=== PATIENT | female | born 1950 | race Caucasian/White ===

== ENCOUNTER 2017-04-14 18:06 | Day surgery (SDC) | payer MEDICARE ==
[~2017-04-14] VITALS: Ht 160 cm; Wt 82.9 kg
[2017-04-14] MEDS ORDERED: BAYER CHEWABLE81 MG PO (19:07)
[2017-04-14] MEDS ORDERED: ACETAMINOPHEN325 MG PO (19:13)
[2017-04-14] MEDS ORDERED: ZOFRAN4 MG PO (19:14)
[2017-04-14] MEDS ORDERED: FOLIC ACID1 MG PO (19:16)
[2017-04-14] MEDS ORDERED: LEVO-T25 MCG PO (19:19)
[2017-04-14] MEDS ORDERED: COLACE100 MG PO (19:20)
[2017-04-14] MEDS ORDERED: MIRALAX17 GM PO (19:26)
[2017-04-14] MEDS ORDERED: LIPITOR20 MG PO (19:28)
[2017-04-14] MEDS ORDERED: SYNTHROID175 MCG PO (19:37)
[2017-04-14] MEDS ORDERED: NOVOLIN N100 U/ML SQ ×2 (19:39→19:40)
[2017-04-14 19:43] VITALS: BP 132/72; BMI 32.1
[2017-04-14 20:00] VITALS: BP 132/62
--- NOTE | 2017-04-14 23:44 | NUR ---
INITIAL ROUNDS COMPLETED AT 1910 HRS. NO DISTRESS NOTED. FAMILY AT BEDSIDE. ADMISSIN ASSESSMENTCOMPLETED BY 2000 HRS. VSS. IV TO LFA SL. PT DEAF L EAR. R NECK TRIALYSIS NOTED. O2 2LNC. ASSISTED PT TO BR AT 2130 HRS. PT VOIDED 400CC OF URINE. ASSITED BACK TO BED. GAIT UNSTEADY. PM MMEDS GIVEN. PM SNACK SERVED AT 2035 HRS. FSBS AT 2320 HRS 546 AND 586. LAB CALLED FOR STAT GLUCOSE. AWAITNG RESULTS. CHRIS CONTINUE TO MONITOR. SR UP X2, CALL LIGHT WITHIN REACH.
[2017-04-15] VITALS: BP 135/60
--- NOTE | 2017-04-15 00:18 | NUR ---
ON HOLD WITH NEPHROLOGY PIPPA ANSWERING SERVICE X 20 MNUTES. 12 UNITS HUMALOG GIVEN SUB-Q TO L ABD PER S/S. LAB RESULTS 591. WILL RECHECK IN 45 MINUTES. WILL CONTINUE TO MONITOR.
--- NOTE | 2017-04-15 00:39 | NUR ---
RENAL ANSWERING SERVICES NOT ON HOLD. INFORMED NEEDED TO SPEAK TO Perri LANG BUSINESS APPLICATIONS ANALYST RETURNS CALLL AT 0040 HRS INFORMED OF CURRENT BS, AMOUNT OF HUMALOG GIVEN,AND NPO FOR AM SERVICES. INFORMED TO RECHECK IN 30 MINUTES AND IF BS IS GOING DOWN NO ADDITINAL TX.
--- NOTE | 2017-04-15 01:25 | NUR ---
FSBS 570. BLOOD SUGAR TRENDING DOWNWARDS. NPO FOR AM SURGERY. WILL RECHECK WITH AM LABS. WILL CONTINUE TO MONTIOR.
[2017-04-15 04:00] VITALS: BP 131/68
--- NOTE | 2017-04-15 04:47 | NUR ---
PT RESTING WITH EYES CLOSED. RESP EVEN AND REGULAR. SR UP X2, CALL LIGHT WITHIN REACH.
[2017-04-15 06:21] LABS: INR 1.06 (0.85-1.17); PROTIME 13.4 SECONDS (11.6-15.0)
[2017-04-15 06:34] LABS: ANION GAP 12.5 mmol/L (8-16); CALCIUM 8.1 mg/dL (8.5-10.1); CARBON DIOXIDE 28.4 mmol/L (21.0-32.0); CREATININE - SERUM 2.7 mg/dL (0.6-1.3); POTASSIUM - SERUM 3.9 mmol/L (3.5-5.1)
--- NOTE | 2017-04-15 06:36 | NUR ---
VSS THROUGHOTU NIGHT. AM FSBS 464. AWAITING LAB RESLTS. NPO FOR AM HEMOSPLIT PLACEMENT. NEEDS MET; WILL CONTINUE TO MONITOR.
--- NOTE | 2017-04-15 06:52 | NUR ---
RENAL SERVICES PAGED REGARDING AM BLOD SUGAR.
--- NOTE | 2017-04-15 07:12 | NUR ---
Perri BRYANT APN RETURNS CALL FOR RENAL SERVICES. STATES TO GIVE THE 12 UNITS OF HUMALOG PER S/S. WILL CONTINUE TO MONITOR.
[2017-04-15 07:54] VITALS: BP 125/64
--- NOTE | 2017-04-15 09:02 | NUR ---
RECEIVED CALL FROM SALVADOR IN SURGERY AND PATIENT WILL BE LEAVING UNIT SOON.
--- NOTE | 2017-04-15 09:10 | NUR ---
PATIENT LEFT UNIT VIA BED WITH SURGERY AT THIS TIME. NO DISTRESS UPON LEAVING UNIT.
--- NOTE | 2017-04-15 10:27 | NUR ---
RECEIVED PATIENT BACK FROM SURGERY. INFORMED PATIENT DID NOT GO TO RECOVERY. PATIENT O2 SAT 84% ON ROOM AIR. O2 VIA NASAL CANNULA APPLIED AT 2LITERS AND O2 SAT UP TO 94%. FAMILY AT BEDSIDE. HEMESPLIT DRESSING TO RIGHT CHEST CLEAN DRY AND INTACT. BIOPATCH IN TACT AND VISIBLE. NO BLEEDING FROM SITE. CALL LIGHT WITHIN REACH. NO DISTRESS.
[2017-04-15 11:18] VITALS: Ht 160 cm; Wt 82.9 kg
--- NOTE | 2017-04-15 11:43 | NUR ---
SPOKE TO BRO TO REPORT FSBS 438, HIGH BUT TRENDING DOWNWARD. RECIEVED NEW ORDERS TO COVER WITH 12 UNITS PER SLIDING SCALE AND RESTART NPH SHE WAS TAKING AT HOME AND TO GIVE THE AM DOSE OF 15UNITS NOW. EDUARDA INPUTTED ORDERED.
--- NOTE | 2017-04-15 11:59 | NUR ---
LEFT MESSAGE ON AMADA ORTEGA CONFIDENTIAL VOICE MAIL THAT WE ARE TRYING TO VERIFY CHAIR TIME ON A PATIENT AND WOULD APPRECIATE A CALL BACK IF POSSIBLE. PATIENT CANNOT BE DISCHARGED WITHOUT RECEIVING DILAYSIS TOMORROW UNLESS CHAIR TIME IS VERIFIED BY MONICA. AMADA ORTEGA [phone]
--- NOTE | 2017-04-15 12:19 | NUR ---
BP 132/52. PATIENT SITTING UP IN BED CONSUMING NOON MEAL. CALL LIGHT WITHIN REACH. NO DISTRESS.
--- NOTE | 2017-04-15 12:20 | NUR ---
SPOKE TO JERRI ZHU AND SHE STATES THAT IF PATIENT HAS NOT ACUTALLY HAD DIALYSIS IN THE OUTPATIENT CENTER THEN HER CHAIR IS NOT GAURENTED. PATIENT STATES SHE HAS ONLY RECIEVED DIALYSIS IN [facility]. AMADA STATED SHE WOULD TRY TO FIND PATIENT IN THE SYSTEM BUT IF [facility] DOES NOT HAVE CLINICS IN [place]. INFORMATION RELAYED TO PATIENT. PATIENT UPSET.
[2017-04-15 12:46] VITALS: BP 110/56
--- NOTE | 2017-04-15 13:24 | NUR ---
SPOKE TO MIKE, NURSE AT [facility] [phone] AND MIKE VERIFIED THAT PATIENT DOES HAVE CHAIR TIME GAURENTEED ON SUNDAY @ 1345. HAVE [facility] [employer] AND [employer]ORAGE CLERK TO NOTIFY OF THIS AND TO SEE IF NEPHROLOGY WILL DISCHARGE PATIENT TO HOME. AWAITING HEPATOLOGY PHYSICIAN BACK.
--- NOTE | 2017-04-15 17:07 | NUR ---
FSBS 233. 4 UNITS HUMALOG ADMINISTERED PER SLIDING SCALE. NO DISTRESS. EATING PM MEAL. 1.5 LITERS REMOVED DURING DIALYSIS.
--- NOTE | 2017-04-15 17:13 | NUR ---
18 GAUGE IV REMOVED FROM LEFT FOREARM. CATHETER TIP INTACT. NO BLEEDING FROM SITE. 2X2 GAUGE APPLIED AND SECURED WITH TAPE. TOLERATED IV REMOVAL WELL. PATIENT SITTING UP IN WC, NO DISTRESS.
--- NOTE | 2017-04-15 17:49 | NUR ---
DISCHARGE INSTRUCTIONS PROVIDED TO PATIENT AND FAMILY. PATIENT VERBALZIED UNDERSTANDING OF ALL INSTRUCTIONS PROVIDED. NO QUESTIONS FOR THIS PUBLIC WORKS COMMISSIONER.
--- NOTE | 2017-04-15 17:53 | NUR ---
PATIENT LEFT UNIT VIA WHEELCHAIR AT THIS TIME. PATIENT LEFT UNIT WITH ALL PERSONAL BELONGINGS. NO DISTRESS UPON LEAVING UNIT. PATIENT DISCHARGED TO HOME.
--- NOTE | 2017-04-15 19:57 | NUR ---
LATE ENTRY 1200 DR GARLAND SPOKE WITH PRIMARY NURSE AND SENIOR TECHNOLOGIST REGARDING VERIFICATION OF PATIENT'S HD STATUS AND CHAIR. NO DOCUMENTATION. PATIENT DID NOT KNOW. LOCATED AMADA ZHU'S PHONE NUMBER. SHE WAS NOT FAMILIAR WITH THIS PATIENT. HAD NO ADDITIONAL CONTACT PHONE NUMBERS. THE PATIENT CALLED THE LOCAL HOSPITAL AND SPOKE WITH THE HD NURSES. THEY VERFIED THE PATIENT'S CHAIR TIME AND DATE OF START. PATIENT WAS ABLE TO DISCHARGE TO HOME THIS PM W/ CONFIRMED DIALYSIS TIME AND DATES.
--- NOTE | 2017-04-15 20:16 | NUR ---
PATIENT TO BE AT [facility] AT 1345 ON Sunday04/17/17.
--- NOTE | 2017-04-19 13:27 | CN ---
PATIENT NAME:TRAVIS WHITAKER MEDICAL RECORD: [id number] : 54 [facility] ADMIT DATE: ACCOUNT: [id number] CONSULTING PHYSICIAN: MAN TRINIDAD MD REFERRING PHYSICIAN: NATACHA GARLAND MD DATE OF CONSULTATION: 04/14/2017 CHIEF COMPLAINT: No access. HISTORY OF PRESENT ILLNESS: The patient has no access for hemodialysis. The patient has end-stage renal disease. She is up from [place]. Reportedly, there are no surgeons in [place] at this time. Nothing aggravates. Nothing alleviates. She is asymptomatic. She has an indwelling right IJ Trialysis catheter. I have been asked to place a HemoSplit catheter. I have not been asked to place a peripheral access on this patient. She is left handed. For the typed portion of the consult note, please see the chart. This would include current medications, past medical and surgical history, allergies, family history, and social history. REVIEW OF SYSTEMS: No nausea, no vomiting, no fever, no chills, no chest pain, no shortness of breath. The review of systems is negative other than as is described above. PHYSICAL EXAMINATION: GENERAL: The patient does not appear acutely ill. She does appear chronically ill. VITAL SIGNS: Reviewed. EARS: External ears appear normal. EYES: Extraocular movements are intact. NECK: Trachea is midline. CHEST: No intercostal retractions. PULMONARY: Nonlabored, no stridor. ABDOMEN: No peritonitis with movement. EXTREMITIES: No peripheral cyanosis. INTEGUMENT: No rash. PSYCHIATRIC: Normal affect. NEUROLOGIC: Nonfocal. No lethargy. The patient answers questions appropriately. BACK: No thoracic kyphosis. LYMPHATICS: No lymphangitic streaking of the exposed extremities. IMPRESSION: End-stage renal disease without access for hemodialysis. PLAN: HemoSplit catheter placement in the OR on 04/15/2017. TRANSINT:[id number] Voice Confirmation ID: [id number] DOCUMENT ID: [id number] CONSULT REPORT [id number] TRAVIS WHITAKER ROBERT MD at 1327 CC: NATACHA GARLAND MD [id number] DICTATION DATE: 04/15/17 1023 EXCHANGE ENGINEER: 04/15/17 1324 [facility] 04/15/17 [facility] [address] [place] [address]
--- NOTE | 2017-04-19 13:27 | OP ---
PATIENT NAME: TRAVIS WHITAKER MEDICAL RECORD: [id number] :54 LOCATION:D[facility] ADMISSION DATE: SURGEON: SUMIT TRINIDAD MD DATE OF OPERATION: 04/15/2017 PREOPERATIVE DIAGNOSIS: End-stage renal disease without access for hemodialysis. POSTOPERATIVE DIAGNOSIS: End-stage renal disease without access for hemodialysis. PROCEDURES: 1. Placement of right 19-cm HemoSplit catheter (tunneled cuffed hemodialysis catheter under fluoroscopic guidance). 2. Immediate surgeon interpretation of the fluoroscopic images. SURGEON: Sumit Trinidad MD LICENSED REAL ESTATE BROKER: None. BLOOD LOSS: Minimal. ANESTHESIA: Local with IV sedation. COMPLICATIONS: None. The risks, possible complications, and alternatives to procedure were explained to the patient. She elects to proceed. OPERATIVE COURSE: The patient was conveyed to the operating room electively on 04/15/2017. No radiologist was present for this procedure. Static fluoroscopic images were obtained and are kept in the PACS system. The surgeon interpretation of the radiographic images is dictated within the body of this operative note. The patient was conveyed to the operating room electively on 04/15/2017. IV sedation was induced by anesthesia staff. The right neck and right chest were sterilely prepped and draped. A local anesthetic was used to infiltrate the skin and subcutaneous tissues in the right infraclavicular chest as well as at the base of the right neck. A skin incision was accomplished along the Trialysis catheter. A counterincision was accomplished in the right infraclavicular anterior chest. A J wire was placed down through the distal most port in the Trialysis catheter. I then dilated to a larger size. I tunneled a HemoSplit catheter from the chest incision to the neck incision. I then placed a dilator and sheath over the wire. This was visualized under fluoroscopy. The dilator and wire were removed. The tips of the HemoSplit catheter were advanced down through the sheath. The Peel-Away sheath was then removed. I then pulled back on the HemoSplit catheter to seat the cuff in the subcutaneous tissues. An image was obtained and this revealed no radiographic evidence of complication. There was no apparent kinking or twisting of the HemoSplit catheter. Both lumens flushed easily and aspirated dark, nonpulsatile blood. The neck incision was closed with a horizontal mattress 3-0 Vicryl suture. The flange of the HemoSplit catheter was sutured to the underlying skin with 2-0 OPERATIVE REPORT [id number] TRAVIS WHITAKER. Sterile dressings were applied. The patient was then conveyed back to her floor bed. I will see her on a p.r.n. basis. TRANSINT:[id number] Voice Confirmation ID: [id number] DOCUMENT ID: [id number] SUMIT TRINIDAD MD at 1327 CC: NATACHA GARLAND MD [id number] DICTATION DATE: 04/15/17 1028 SOLAR PHOTOVOLTAIC ELECTRICIAN: 04/15/17 1206 [facility] 04/15/17 [id number] [place] [address]
== END 2017-04-15 17:55 | disposition home or self-care (01) ==
LOC: OBSVTIME → D.OPS 18:06 → D.M2 18:06 → OBSVTIME 18:06 → D.M2 18:06 → D.OPS 04-15 17:55
PROVIDERS: Internal Medicine Nephrology
DX: E11.22 Type 2 diabetes mellitus with diabetic chronic kidney disease (principal); I12.0 Hypertensive chronic kidney disease with stage 5 chronic kidney disease or end stage renal disease; N18.6 End stage renal disease; Z99.2 Dependence on renal dialysis; J44.9 Chronic obstructive pulmonary disease, unspecified; Z86.73 Personal history of transient ischemic attack (TIA), and cerebral infarction without residual deficits; E07.9 Disorder of thyroid, unspecified; I25.10 Atherosclerotic heart disease of native coronary artery without angina pectoris; Z95.1 Presence of aortocoronary bypass graft; F32.9 Major depressive disorder, single episode, unspecified; Z99.81 Dependence on supplemental oxygen; Z79.82 Long term (current) use of aspirin; Z79.4 Long term (current) use of insulin; Z79.899 Other long term (current) drug therapy; Z88.5 Allergy status to narcotic agent; Z88.0 Allergy status to penicillin